=== PATIENT | female | born 2000 | race Caucasian/White ===

== ENCOUNTER 2020-07-16 12:39 | Emergency (ER) | payer BC ==
[~2020-07-16] VITALS: Ht 170.2 cm; Wt 63.6 kg
[2020-07-16 12:46] VITALS: BP 118/76; TEMP 97.9
[2020-07-16 13:06] LABS: BASO # 0.1 (0.0-0.2); BASO % 0.4 % (0.0-2.0); EOS % 0.1 % (0-4.0); GRAN # 11.4 (1.4-6.5); GRAN % 88.1 % (42.2-75.2); HEMATOCRIT 40.8 % (35.0-45.0); HEMOGLOBIN 13.7 g/dl (12.0-15.0); LYMPH # 0.9 (1.2-3.4); LYMPH % 7.1 % (20.0-51.0); MEAN CELL VOLUME 93 fl (80.0-95.0); MEAN CORPUSCULAR HEMOGLOBIN 31 pg (26.0-32.0); MEAN CORPUSCULAR HGB CONC 34 g/dl (33.0-37.0); MEAN PLATELET VOLUME 11.4 fl (7.4-10.4); MONO # 0.5 (0.1-0.6); MONO % 3.8 % (1.7-9.3); PLATELET COUNT 190 K/mm3 (130-400); RED BLOOD COUNT 4.41 M/mm3 (4.10-5.30)
[2020-07-16 13:16] LABS: ALBUMIN 4.5 gm/dL (3.5-5.0); BILIRUBIN,TOTAL 0.9 mg/dL (0.0-1.0); CALCIUM 9.6 mg/dL (8.4-10.2); CREATININE, serum 0.65 (0.52-1.25); TOTAL PROTEIN 7.6 gm/dL (6.4-8.2)
[2020-07-16 13:26] LABS: COLLECTION METHOD CLEAN CATCH
[2020-07-16 13:31] LABS: MUCOUS Present /lpf; PH 7 (5-8); SQUAMOUS EPITHELIAL 0-2 /hpf; URINE APPEARANCE Clear; URINE BACTERIA Rare /hpf; URINE BILIRUBIN Negative (NEGATIVE); URINE BLOOD Negative (NEGATIVE); URINE COLOR Yellow; URINE GLUCOSE Negative (NEGATIVE); URINE KETONE 2+ (NEGATIVE); URINE LEUKOCYTE ESTERASE Negative (NEGATIVE); URINE NITRATE Negative (NEGATIVE); URINE PROTEIN(semi-quant) 1+ (NEGATIVE); URINE RBC 0-2 /hpf; URINE UROBILINOGEN Negative (NEGATIVE)
[2020-07-16] MEDS ORDERED: ZOFRAN ODT4 MG PO (14:09)
[2020-07-16 14:18] VITALS: PULSE 95
[2020-07-17] MEDS ORDERED: BEYAZ1 TAB PO (04:38)
[2020-07-17] MEDS ORDERED: NORCO 325 MG-51 TAB PO (16:26)
== END 2020-07-16 14:19 | disposition home or self-care (01) ==
LOC: COL.ER 12:39
PROVIDERS: Physician Assistant
DX: K52.9 Noninfective gastroenteritis and colitis, unspecified (principal); Z88.1 Allergy status to other antibiotic agents; Z88.2 Allergy status to sulfonamides
CPT/HCPCS: J0500; J1885; J2405; J7030

== ENCOUNTER 2020-07-16 23:44 | Observation (INO) | payer BC ==
[~2020-07-16] VITALS: Ht 170.2 cm; Wt 63.6 kg
[~2020-07-16 23:44] MED LIST: ZOFRAN ODT4 MG PO
[2020-07-17] VITALS (10 sets, daily range): BP systolic 81–136; BP diastolic 48–79; PULSE 57–84; TEMP 98.1–98.8
--- NOTE | 2020-07-17 04:35 | NUR ---
Pt. to the floor. Pt. is A&XO3, assessment complete. INT to rt. ac patent. Pt. reports pain at a 3 on pain scale. Will give tylenol per pt. request. Pt. denies other needs.
[2020-07-17] MEDS ORDERED: BEYAZ1 TAB PO (04:38)
--- NOTE | 2020-07-17 08:32 | NUR ---
Lying in bed with eyes open, tearful, talking with Dr. Weaver and her mother in regards to decision to do surgery or antibiotic therapy. Patient decides surgery. Is concerned about scars. Reassurance provided to the patient. MOther attempts to reassure patient. Discuss what to expect after surgery. Discuss that we will come down to help her get in shower to do a surgical scrub and she will need to be in hospital gown. Patient asks if she will have to take her underwear off. Explain that I will let her leave them on and if surgery needs them off they will let her know. Patient becomes more tearful at this time and explains that she is embarrased and does not want anyone to see anything. Explain that she will be covered. Mother continues to provide reassurance as well. Rating pain in right lower abd 5/10 at this time. Does not like how the morphine makes her feel. Will assist in getting in shower at this time.
--- NOTE | 2020-07-17 08:53 | NUR ---
Consent reviewed with patient. Patient signs consent, will place on chart.
--- NOTE | 2020-07-17 09:15 | NUR ---
Kathy, RN with surgery, here to take patient to surgery via bed.
--- NOTE | 2020-07-17 11:20 | NUR ---
Patient to room from PACU via bed. Patient is alert and oriented x4 but groggy. Patient says that she is having pain and would like something for pain. A couple times patient is going back to sleep. Discuss with the mother and the patient that we would like for her to be more awake, able to eat and drink before we give more pain medication. Discuss side effect of respiratory difficulties with too much use of controlled medications. Provide water and jello. Patient says that she feels like she needs to "poop". Offer to assist patient in bathroom and she declines at this time but then asks if someone can help her "poop". Offer BSC and the patient declines. Mother at bedside and will let us know if patient would like to use bathroom. Denies needs at this time.
--- NOTE | 2020-07-17 11:50 | NUR ---
Patient up ambulating in room with standby assist of one. Mother assisting patient in ordering food for lunch. Patient sits in chair at this time. Provide applesauce. Denies additional needs at this time.
--- NOTE | 2020-07-17 12:11 | NUR ---
Mother assisted patient back to bed. Patient says that she is doing okay at this time. Would like pain pill when her lunch gets here. Denies additional needs at this time.
--- NOTE | 2020-07-17 12:46 | NUR ---
Lying in bed with eyes closed. Opens eyes when enter room. Patient says that she is tired and wants to rest. Encourage patient to rest at this time. Ask patient about pain and had [place] to give. Patient says that her pain is better than it was and denies need for pain medication. Patient continues to work on eating lunch. Mother in room with the patient. Denies additional needs.
--- NOTE | 2020-07-17 13:10 | NUR ---
Lying in bed on right side. Patient says that she feels really good at this time. Denies additional needs or concerns.
--- NOTE | 2020-07-17 13:26 | NUR ---
Patient resting in bed with eyes open. BP 81/49. Patient says that she continues to feel good at this time. Questions if she will be able to discharge today. Explain criteria for discharge and that Dr. Weaver will make that final decision. Patient asks if she can get medication for constipation. Explain that we will contact Dr. Weaver to see what can be ordered. Dr. Weaver notified and orders received for Miralax. Updated Dr. Weaver in regards to BP, no new orders for BP at this time.
--- NOTE | 2020-07-17 13:33 | NUR ---
Plans to return home with mother Terri , Met with patient and mother in room. Patient reports that she resides in a sorority home locally but will go home to [facility]. Patients contact . Patient reports that she uses [facility], PCP is Dr. Kati Seo in [place]. Denies having any needs. Educated on support options. Will continue to follow.
--- NOTE | 2020-07-17 14:22 | NUR ---
Lying in bed with eyes open. Patient says that she is doing good at this time. Does not want narcotic meds as she is already constipated and does not want to get more constipated. Would like plain Tylenol or ibuprofen. Explain that I will contact Dr. Weaver for orders. Speak with Dr. Weaver and orders received. He will also be up later to assess patient for possible discharge this evening. Will administer medications as prescribed and update patient.
--- NOTE | 2020-07-17 14:49 | NUR ---
Patient asking for something stronger for pain because she is still feeling some pain. Discuss with the patient that she just received Tylenol and ibuprofen less than an hour ago and encouraged her to give the medication more time to work. Review with the patient restrictions with acetaminophen daily amount and effects too much can have on liver. Patient asks if she can have more ibuprofen. Explain that I gave her the dose that Dr. Weaver had prescribed for her. Encourage to give medication more time to work and explain that if the pain persists we could resort to IV Morphine. Patient says that she does not like how the morphine makes her feel and will "stick it out". Denies additional needs at this time.
[2020-07-17] MEDS ORDERED: NORCO 325 MG-51 TAB PO (16:26)
--- NOTE | 2020-07-17 16:44 | NUR ---
Review all discharge instructions with patient. Verbalizes understanding, denies questions, patient signs discharge paperwork. Discharge packet provided to the patient. Patient will be assisted out to mother's vehicle with all personal belongings via wheelchair by JULIANA Marrufo.
== END 2020-07-17 16:47 | disposition home or self-care (01) ==
LOC: COL.ER 23:44 → SURG 07-17 01:45
PROVIDERS: ADMIT Surgery
DX: K35.80 Unspecified acute appendicitis (principal); K59.00 Constipation, unspecified; Z88.2 Allergy status to sulfonamides; Z88.1 Allergy status to other antibiotic agents; Z79.899 Other long term (current) drug therapy; Z88.0 Allergy status to penicillin
CPT/HCPCS: G0378; J0690; J1100; J1885; J2250; J2270; J2405; J2543; J2704; J2710; J3010; J7030; J7120; Q9967